=== PATIENT | male | born 1955 | race Caucasian/White ===

== ENCOUNTER 2017-01-10 12:48 | Outpatient (CLI) | payer MEDICARE ==
[~2017-01-10] VITALS: Ht 177.8 cm; Wt 99.3 kg
[~2017-01-10 12:48] MED LIST: METO-333 PO; PNT40TEC PO
[2017-01-10 12:56] VITALS: BP 155/89
[2017-01-10] MEDS ORDERED: CYCL10TA9 PO (13:02)
[2017-01-10] MEDS ORDERED: ATOR10TA66 PO (13:02)
[2017-01-10] MEDS ORDERED: RANI-515 PO (13:02)
[2017-01-10] MEDS ORDERED: HYDR-3812 PO (13:02)
[2017-01-10] MEDS ORDERED: DOCU100T7 PO (13:02)
[2017-01-10] MEDS ORDERED: ASPI-586 PO (13:02)
[2017-01-10] MEDS ORDERED: TAMS0.4C2 PO (13:02)
== END 2017-01-10 13:10 | disposition home or self-care (01) ==
LOC: PREOP 12:48
PROVIDERS: ATTEND Surgery
DX: Z01.818 Encounter for other preprocedural examination (principal); Z11.2 Encounter for screening for other bacterial diseases; K40.90 Unilateral inguinal hernia, without obstruction or gangrene, not specified as recurrent
CPT/HCPCS: 87081

== ENCOUNTER 2017-01-12 08:22 | Day surgery (SDC) | payer MEDICARE, OTHER ==
[2017-01-12] VITALS (7 sets, daily range): BP systolic 117–134; BP diastolic 74–96
[~2017-01-12] VITALS: Ht 177.8 cm; Wt 99.3 kg
[~2017-01-12 08:22] MED LIST changes: +ASPI-586 PO; +ATOR10TA66 PO; +CYCL10TA9 PO; +DOCU100T7 PO; +FAMOTIDINE 20MG/2ML IV (PEPCID) IV ONE; +HYDR-3812 PO; +RANI-515 PO; +TAMS0.4C2 PO
[2017-01-12] MEDS ORDERED: ceFAZolin 2 GM/NS 50 ML IV ONE (08:45)
[2017-01-12] MEDS: LACTATED RINGERS 1,000 ML IV PRN ×2 (08:56→11:00)
--- NOTE | 2017-01-12 08:56 | Progress Note-Pre Operative ---
Pre-Operative Progress Note H&P Reviewed The H&P was reviewed, patient examined and no changes noted. Date H&P Reviewed: January 12, 2017 Time H&P Reviewed: 08:53 Pre-Operative Diagnosis: Left inguinal hernia KACIE HOGAN DO January 12, 2017 08:56
[2017-01-12] MEDS ORDERED: CLINDAMYCIN 900 MG/50 ML IVPB 50 ML IV ONE ×2 (09:00→09:15)
[2017-01-12] MEDS ORDERED: MIDAZOLAM 2 MG/2 ML (VERSED) VIAL ONE (10:17)
[2017-01-12] MEDS ORDERED: fentaNYL INJECTION 100 MCG/2 ML AMP ONE (10:17)
[2017-01-12] MEDS ORDERED: LIDOCAINE PF 2% 10 ML (XYLOCAINE) AMP ONE (10:17)
[2017-01-12] MEDS ORDERED: LACTATED RINGERS 1,000 ML IV ONE ×2 (10:17→10:38)
[2017-01-12] MEDS ORDERED: proPOfol 200 MG/20 ML (DIPRIVAN) VIAL IV ONE (10:17)
[2017-01-12] MEDS ORDERED: ONDANSETRON 4 MG/2 ML (SDV) Z0FRAN ONE (10:17)
[2017-01-12] MEDS ORDERED: ROCURONIUM 50 MG/5 ML (ZEMURON) VIAL IV ONE (10:17)
[2017-01-12] MEDS ORDERED: SEVOFLURANE (ULTANE) 15 ML INHAL SOLN ONE (10:17)
[2017-01-12] MEDS ORDERED: LIDOCAINE/EPI 1%-1:100,000 (XYLOCAINE) 20ML ONE ×2 (10:33→10:41)
[2017-01-12] MEDS ORDERED: PHENYLEPHRINE 100 MCG/ML 10 ML (ANESTHESIA) SYR ONE (10:48)
[2017-01-12] MEDS ORDERED: MEPERIDINE (DEMEROL) INJ 50 MG/ML IVP PRN (11:00)
[2017-01-12] MEDS ORDERED: morphine INJ 10 MG/ML 1ML (SYR OR VIAL) IVP PRN (11:00)
[2017-01-12] MEDS ORDERED: ONDANSETRON 4 MG/2 ML (SDV) Z0FRAN IVP PRN (11:00)
[2017-01-12] MEDS ORDERED: NEOSTIGMINE (BLOXIVERZ ) 1 MG/1ML 10 ML VIAL ONE (11:07)
[2017-01-12] MEDS ORDERED: GLYCOPYRROLATE 0.2 MG/ML (ROBINUL) 2 ML VIAL ONE (11:07)
--- NOTE | 2017-01-12 11:15 | Progress Note-Post Operative ---
Post-Operative Progess Note Surgeon (s)/L[employer]ified [employer] Specialist (s) Surgeon KACIE HOGAN DO [employer] Specialist: Lauren Pre-Operative Diagnosis Left inguinal hernia Post-Operative Diagnosis LIH - direct inguinal mass Post-Op Procedure Note Date of Procedure: January 12, 2017 Name of Procedure Performed: 1. LIH with mesh 2. Exc subQ mass inguinal appx 3cm Description of the Procedure: as above Findings of the Procedure Direct left inguinal hernia inguinal mass Anesthesia Type GET Estimated blood loss (mL): scant Specimen(s) collected/removed inguinal mass KACIE HOGAN DO January 12, 2017 11:15
[2017-01-12] MEDS ORDERED: HYDR-3812 PO (11:16)
--- NOTE | 2017-01-12 11:18 | Discharge Inst-Surgical ---
Discharge Inst-Surgical Depart Medication/Instructions New, Converted or Re-Newed RX: RX Given to Pt/Family Patient Instructions Follow up Appt: Make appointment for 1 week. [phone] Instructions: No lifting greater than 10 pounds. No strenuous activity. May shower in 24 hours, no tub bath or soaking. Use incentive spirometer at home as directed. No Smoking Skin/Wound Care: May remove bandages in am 5/6 Symptoms to Report: Appetite Changes, Extremity Discoloration, Numbness/Tingling, Swelling Increased , Bleeding Excessive, Eyesight Changes, Pain Increased, Urine Color Change, Constipation(Persistent), Fever over 101 degree F, Pain/Pressure in chest, Urinating Difficulty, Cough Up/Vomit Blood, Heart Beat Irreg/Pounding, Pain/ Pressure in jaw, Vaginal Bleeding Increase, Cramps in feet or legs, Lightheadedness, Pain/Pressure in shoulder, Diarrhea(Persistent), Memory Changes Suddenly, Questions/Concerns, Weight gain consecutive days, Dizziness/ Fainting, Nausea/Vomiting, Shortness of Breath, Weight gain over 2 pounds If questions or concerns contact your physician Or seek help at emergency department. Activity Activity as Tolerated: Yes Activity Instructions: Avoid Pulling & Pushing, Avoid Stress to Incision Driving Instructions: No Driving/Refer to Dr. Estrada Discharge Diet: No Restrictions Diet After 24 Hours: Clear Liquid if Nauseous If Any Problems/Questions/Issu: Contact Your Physician, Go to Emergency Room Skin/Wound Care Infection Signs and Symptoms: Increased Redness, Foul Odor of Wound, Increased Drainage, Skin Itchy or Has a Rash, Increased Swelling, Temperature Above 101 F Bathing Instructions: Shower Stitches/[place]/Dermabond Dis: Dermabond Ice Pack: Ice On and Off Site KACIE HOGAN DO January 12, 2017 11:18
[2017-01-12] MEDS ORDERED: HYDROcodone/APAP 5 MG/325 MG (LORTAB) TAB ONE (12:51)
[2017-01-12] MEDS: HYDROcodone/APAP 5 MG/325 MG (LORTAB) TAB PO ONE ×2 (12:58→13:00)
[2017-01-12] MEDS ORDERED: HYDROcodone/APAP 5 MG/325 MG (LORTAB) TAB PO ONE (15:30)
--- NOTE | 2017-01-13 11:55 | OPERATIVE REPORT ---
DATE OF SERVICE: 01/12/2017 PREOPERATIVE DIAGNOSIS: Left inguinal hernia. POSTOPERATIVE DIAGNOSES: 1. Left inguinal hernia, indirect. 2. Inguinal mass. PROCEDURES: 1. Left inguinal herniorrhaphy. 2. Excision of subcutaneous inguinal mass, approximately 3 cm mass. SURGEON: Dr. Osmin Murillo. VICE CHAIRMAN: Dr. Aguilar. ANESTHESIA: General endotracheal tube. SPECIMEN: Left inguinal mass. BLOOD LOSS: Scant. FLUIDS: Per anesthesia. POSTOPERATIVE CONDITION: Stable. INDICATION FOR PROCEDURE: The patient is a 61-year-old male who came in with complaint of left inguinal pain and diagnoses of left inguinal hernia. He also had a little bit of a bulge when seen today, could see a bulge in left inguinal region, thought this was related to hernia. FINDINGS: The patient had a left inguinal hernia, indirect, and he had a mass, probably just lipoma in left inguinal region, this was sent to pathology. PROCEDURE NOTE: After informed consent was obtained, patient was brought to the operating room, placed on table on supine position. He was sterilely prepped and draped in normal fashion. Ilioinguinal nerve block as well as pubic tubercle block was performed and then infiltrated left inguinal region local, could see a mass down in the inguinal region down below, close to the scrotum, but right about the level of the penis. Made incision in left inguinal region with #15 blade carried down to skin and subcutaneous tissue and made down to subcutaneous tissue with Bovie electrocautery down to the fascia. The external oblique fascia then infiltrated with local and incised to external inguinal ring with Bovie electrocautery. Grasped the external oblique fascia with two hemostats and then dissected under it bluntly with a finger then able to get under the cord and cord structures at the pubic tubercle, placed a Sathya drain from the inferior lateral direction. Palpated around and could see this mass, tried to feel if this was femoral hernia, it was not palpated and then tried to push this skin and mass toward it, felt like there was a lump under there, elected to make a second incision, infiltrated the skin with local, made an incision with #15 blade and then made an incision through the skin into the subcutaneous tissue and then deep enough through subcutaneous tissue with Bovie electrocautery as well as blunt dissection, going down to this mass and then removing and block was about 3 cm long and about 1.5 cm in diameter. This was passed off the table and sent to pathology and this was the mass that we could palpate, almost felt like it tracked towards the inguinal canal. Once this removed, then looked superior medially on the "structures" for an indirect inguinal hernia, did not find an indirect inguinal hernia. However, he did have a floor defect, little bit of weakness and this is a direct hernia. At this point, we elected to place a ProGrip mesh 12 cm x 8 cm, trim the sides to fit into the inguinal canal, sutured one to the pubic tubercle and then circled the cord with a precut hole, thereby recreating the internal inguinal ring. The mesh then was pushed up under the external oblique fascia and laid in nicely and then copiously irrigated with normal saline, suctioned this out. Then elected to close the external oblique fascia with 3-0 Vicryl running suture thereby recreating the external inguinal ring. Then closed carpus fascia 3-0 Vicryl two interrupted sutures and then closed the skin with 4-0 undyed Monocryl in subcuticular fashion. The other incision was closed with 3-0 Vicryl deep suture and then 4-0 undyed Monocryl in subcuticular fashion. The other incision was closed with 3-0 Vicryl deep suture and then 4-0 undyed Monocryl in subcuticular fashion. Area was cleaned and dried. Dermabond placed as well as then bandaged. The patient was transferred to recovery room in stable condition. Sponge and needle counts were correct at the end of the case. Dr. Aguilar assisted in closing the skin, assisted with visualization and identification of anatomy and was necessary to this case. Job ID: [id number] DocumentID: [id number] Dictated Date: 01/12/2017 11:22:02 Master Mechanic Date: 01/13/2017 01:16:31 Dictated By: OSMIN MURILLO DO
== END 2017-01-12 16:25 | disposition home or self-care (01) ==
LOC: SDC 08:22
PROVIDERS: ATTEND Surgery
DX: K40.90 Unilateral inguinal hernia, without obstruction or gangrene, not specified as recurrent (principal); F17.210 Nicotine dependence, cigarettes, uncomplicated
CPT/HCPCS: 88302; 94664

== ENCOUNTER 2020-03-24 17:32 | Emergency (ER) | payer MEDICARE ==
[~2020-03-24] VITALS: Ht 177.8 cm; Wt 105.1 kg
[~2020-03-24 17:32] MED LIST changes: +ACHD5005 PO; -FAMOTIDINE 20MG/2ML IV (PEPCID) IV ONE; -HYDR-3812 PO; -RANI-515 PO; +RANI-609 PO
[2020-03-24 17:54] LABS: BILIRUBIN,URINE NEGATIVE (NEGATIVE); CLARITY,URINE CLEAR; COLOR,URINE YELLOW; GLUCOSE, URINE (UA) NEGATIVE (NEGATIVE); KETONES,URINE NEGATIVE (NEGATIVE); LEUKOCYTE ESTERASE ,URINE NEGATIVE (NEGATIVE); NITRITE,URINE NEGATIVE (NEGATIVE); PROTEIN,URINE NEGATIVE (NEGATIVE)
[2020-03-24 17:55] LABS: BACTERIA,URINE NEGATIVE /HPF; RBC,URINE RARE /HPF
--- NOTE | 2020-03-24 17:57 | ED General ---
General Stated Complaint: ABD PAIN Source of Information: Patient History of Present Illness Date Seen by Provider: Mar 24, 2020 Time Seen by Provider: 17:52 Initial Comments Patient is a 64-year-old male is status post hemorrhoidectomy under general a nesthesia yesterday presents with urinary retention and suprapubic pain starting this afternoon. Patient states he is able to urinate immediately following surgery and earlier today. However, symptoms began this afternoon the patient has not been able to urinate for the past few hours. Denies fever chills, nausea vomiting sweats and flank pain. No hematuria. Ports history of large prostate. Currently on Flomax. Patient also reports constipation since surgery currently on MiraLAX and stool softeners Timing/Duration: 4-6 Hours Severity: Severe Modifying Factors: improves with Other Associated Systoms: Denies Symptoms Allergies and Home Medications Allergies Coded Allergies: Penicillins (Verified Allergy, Unknown, 08/18/16) Home Medications Aspirin 81 Mg Tablet.dr, 81 MG PO DAILY, (Reported) Cyclobenzaprine HCl 10 Mg Tablet, 10 MG PO TID PRN for MUSCLE SPASMS, (Reported) Docusate Sodium 100 Mg Tablet, 100 MG PO DAILY PRN for CONSTIPATION-1ST LINE, (Reported) Patient Home Medication List Home Medication List Reviewed: Yes Review of Systems Review of Systems Constitutional: no symptoms reported EENTM: no symptoms reported Respiratory: no symptoms reported Cardiovascular: no symptoms reported Gastrointestinal: no symptoms reported Genitourinary: no symptoms reported Musculoskeletal: no symptoms reported Skin: see HPI Psychiatric/Neurological: No Symptoms Reported Immunological/Allergic: no symptoms reported Past Gnhpzef-Hgdudx-Cyjenr Hx Past Med/Social Hx: Reviewed Nursing Past Med/Soc Hx Patient Social History Type Used: Cigarettes Recent Foreign Travel: No Contact w/Someone Who Travel: No Recent Hopitalizations: No Immunizations Up To Date Tetanus Booster (TDap): Unknown Seasonal Allergies Seasonal Allergies: No Past Medical History Chronic Bronchitis Reproductive Disorders: No Benign Prostatic Hyperpl Gastroesophageal Reflux, Chronic Constipation Chronic Back Pain Depression Physical Exam Vital Signs Vital Signs - First Documented 03/24/20 17:35 Temp 36.8 Pulse 73 Resp 18 B/P (MAP) 144/82 (102) Pulse Ox 98 O2 Delivery Room Air Capillary Refill : Height, Weight, BMI Height: 5'10.00" Weight: 219lbs. 0.0oz. 99.057605oq; 31.4 BMI Method:Stated General Appearance: No Apparent Distress Eyes: Bilateral Eye Normal Inspection, Bilateral Eye PERRL, Bilateral Eye EOMI HEENT: PERRL/EOMI Neck: Normal Inspection, Non Tender Respiratory: Lungs Clear Cardiovascular: Regular Rate, Rhythm Gastrointestinal: Soft, Tenderness (suprapubic) Back: No CVA Tenderness Neurologic/Psychiatric: Alert, Oriented x3, No Motor/Sensory Deficits Focused Exam Sepsis Stage: Ruled Out Progress/Results/Core Measures Suspected Sepsis SIRS Temperature: Pulse: Respiratory Rate: Blood Pressure / Mean: Results/Orders Lab Results Laboratory Tests Test 03/24/20 17:40 Range/Units Urine Color YELLOW Urine Clarity CLEAR Urine pH 6.0 5-9 Urine Specific [facility] <=1.005 1.016-1.022 Urine Protein NEGATIVE NEGATIVE Urine Glucose (UA) NEGATIVE NEGATIVE Urine Ketones NEGATIVE NEGATIVE Urine Nitrite NEGATIVE NEGATIVE Urine Bilirubin NEGATIVE NEGATIVE Urine Urobilinogen 0.2 < = 1.0 MG/DL Urine Leukocyte Esterase NEGATIVE NEGATIVE Urine RBC (Auto) NEGATIVE NEGATIVE Urine RBC RARE /HPF Urine WBC NONE /HPF Urine Squamous Epithelial Cells NONE /HPF Urine Crystals NONE /LPF Urine Bacteria NEGATIVE /HPF Urine Casts NONE /LPF Urine Mucus NEGATIVE /LPF Urine Culture Indicated NO My Orders Orders - EUGENIO MAE DO Catheter(Urinary) Insert & Ass (03/24/20 17:32) Ua Culture If Indicated (03/24/20 17:32) Vital Signs/I&O Capillary Refill : Departure Communication (Admissions) Fully catheter placed with urine output greater than 600 mL's of urine accompanied with relief of abdominal pain. We'll check UA, and leads catheter in place with anticipated discharge home with instructions to follow up with PCP in 2 days for catheter removal. Impression Primary Impression: Acute urinary retention Disposition: HOME, SELF-CARE Condition: Stable Departure-Patient Inst. Decision time for Depature: 17:56 Referrals: SELFSO MD (PCP) Primary Care Physician Patient Instructions: Urinary Retention (DC), Palmer Catheter, Male Add. Discharge Instructions: Please continue home medications and follow up with PCP in 2 days for Palmer catheter removal EUGENIO MAE DO Mar 24, 2020 17:57
[2020-03-24] MEDS ORDERED: ATOR40TA70 (17:59)
[2020-03-24] MEDS ORDERED: TAMSULOSIN (17:59)
[2020-03-24] MEDS ORDERED: LISI-556 (17:59)
[2020-03-24] MEDS ORDERED: ROPI0.5T4 (17:59)
[2020-03-24] MEDS ORDERED: FAMO20TA5 (17:59)
[2020-03-24] MEDS ORDERED: FLUO40CA (17:59)
[2020-03-24] MEDS ORDERED: ERGO50006 (17:59)
[2020-03-24] MEDS ORDERED: METF-397 (17:59)
[2020-03-24] MEDS ORDERED: HYDR-83 (17:59)
[2020-03-24 18:25] VITALS: BP 145/75
== END 2020-03-24 18:25 | disposition home or self-care (01) ==
LOC: EDUNIT# 17:32 → ER FS 17:33
DX: R33.9 Retention of urine, unspecified (principal); K59.09 Other constipation; Z88.0 Allergy status to penicillin; Z98.890 Other specified postprocedural states; Z79.82 Long term (current) use of aspirin
CPT/HCPCS: 51702; 81000

== ENCOUNTER → 2020-10-08 | Outpatient (CLI) | payer MEDICARE ==
[~2020-10-08] MED LIST changes: +ACHD5005; +ATOR40TA70; +ERGO50006; +FAMO20TA5; +FLUO40CA; +LISI-556; +METF-397; +ROPI0.5T4; +TAMSULOSIN
--- NOTE | 2020-10-08 11:20 | Diagnostic Imaging Report ---
Indication: Abdominal pain KUB 11:09 AM Lung bases are clear. Bowel gas pattern is normal. There are no pathologic masses or calcifications. IMPRESSION: No acute abnormalities in the abdomen Dictated by: Dictated on workstation # [id number]
== END ==
LOC: RAD FS 11:06
PROVIDERS: ATTEND Family Medicine
DX: R10.84 Generalized abdominal pain (principal)
CPT/HCPCS: 74018

== ENCOUNTER 2021-02-19 17:25 | Emergency (ER) | payer MEDICARE ==
[~2021-02-19] VITALS: Ht 180.3 cm; Wt 105.3 kg
[~2021-02-19 17:25] MED LIST changes: -LISI-556; +LISI-729
[2021-02-19] MEDS ORDERED: LIDOCAINE 1% INJ 20 ML 20 ML VIAL INJ STA (17:38)
[2021-02-19] MEDS ORDERED: CLINDAMYCIN 150 MG (CLEOCIN) CAP PO STA (18:23)
--- NOTE | 2021-02-19 18:25 | ED Upper Extremity ---
General Chief Complaint: Foreign Body Stated Complaint: FOREIGN OBJ STUCK IN RIGHT MIDDLE FINGER Nursing Triage Note: see triage note Nursing Sepsis Screen: No Definite Risk Source: patient History of Present Illness Date Seen by Provider: Feb 19, 2021 Time Seen by Provider: 17:27 Initial Comments 65-year-old male presenting with a fishhook stuck in his right middle finger. He states he was doing yard work and had reached into his vehicle to get something when he accidentally caught his finger on the fishhook. He thinks his last tetanus was more than 5 years ago. He did try to remove the fishhook on his own but it was too painful try to pull back out. Is a single barbed single hook fishhook. He states that it is dirty and he had just been fishing previously. He denies any numbness or tingling in the fingertip. He has normal range of motion. He reports that happening about 1 hour prior to arrival Onset: just prior to arrival (By about 1 hour) Pain/Injury Location: right 3rd finger Method of Injury: other (Accidentally caught middle finger on fishhook when reaching in his vehicle) Allergies and Home Medications Allergies Coded Allergies: Penicillins (Verified Allergy, Unknown, 08/18/16) Home Medications Aspirin 81 Mg Tablet.dr, 81 MG PO DAILY, (Reported) Clindamycin HCl 300 Mg Capsule, 300 MG PO QID Prescribed by: DIONISIO DEJESUS on 02/19/211856 Cyclobenzaprine HCl 10 Mg Tablet, 10 MG PO TID PRN for MUSCLE SPASMS, (Reported) Docusate Sodium 100 Mg Tablet, 100 MG PO DAILY PRN for CONSTIPATION-1ST LINE, (Reported) Levofloxacin 750 Mg Tablet, 750 MG PO DAILY Prescribed by: DIONISIO DEJESUS on 02/19/211856 Patient Home Medication List Home Medication List Reviewed: Yes Review of Systems Constitutional: No chills, No fever EENTM: no symptoms reported Respiratory: no symptoms reported Cardiovascular: no symptoms reported Gastrointestinal: no symptoms reported Genitourinary: no symptoms reported Musculoskeletal: see HPI Skin: see HPI Psychiatric/Neurological: Denies Numbness, Denies Paresthesia Past Sdsmool-Anyjlp-Ntozwv Hx Past Med/Social Hx: Reviewed Nursing Past Med/Soc Hx Patient Social History Alcohol Use: Denies Use Smoking Status: Current Everyday Smoker Type Used: Cigarettes 2nd Hand Smoke Exposure: No Recent Infectious Disease Expo: No Recent Hopitalizations: Yes (03/23/20 Hemorroidectomy) Immunizations Up To Date Tetanus Booster (TDap): Unknown Seasonal Allergies Seasonal Allergies: No Past Medical History Surgeries: Yes (L Ing Herniorraphy, Hemorroidectomy) Respiratory: Yes Chronic Bronchitis Cardiac: No Neurological: No Reproductive Disorders: No Genitourinary: Yes Benign Prostatic Hyperpl Gastrointestinal: Yes Gastroesophageal Reflux, Chronic Constipation Musculoskeletal: Yes (CHRONIC NECK AND BACK PAIN ) Chronic Back Pain Endocrine: No HEENT: No Cancer: No Psychosocial: Yes Depression Integumentary: No Blood Disorders: No Physical Exam Vital Signs Vital Signs - First Documented 02/19/21 17:28 Temp 35.8 Pulse 87 Resp 16 B/P (MAP) 123/68 (86) Pulse Ox 94 O2 Delivery Room Air Capillary Refill : Less Than 3 Seconds Height, Weight, BMI Height: 5'10.00" Weight: 219lbs. 0.0oz. 99.933917mx; 32.00 BMI Method:Stated General Appearance: WD/WN, no apparent distress Cardiovascular: normal peripheral pulses Hand: Right, laceration ([place] foreign body in distal phalanx of the middle finger on the right hand) Neurologic/Tendon: normal sensation, normal motor functions, normal tendon functions Neurologic/Psychiatric: merchandise complaint adjuster II-XII nml as tested, alert, normal mood/affect, oriented x 3 Skin: normal color, warm/dry Procedures/Interventions I&D : Site: Right middle finger distal phalanx Blade Size: 10 I & D Procedure: betadine prep Progress After obtaining verbal consent from the patient the middle finger of the right hand was anesthetized using a digital block. He was given 1% plain lidocaine for a total of 5 mL infiltrated in the base of his right middle finger. Then a few minutes were allowed to pass while sitting up supplies. He had no complaints of pain when cleaning the wound. Using Betadine prep and sterile water the wound was scrubbed with gauze and 4 x 4's. Then the fishhook was secured with Kellys clamp and a small demond was made over the kezia of the fi shhook. Then using the blunt needle the kezia was covered and the fishhook was removed without any complication or difficulty. Patient tolerated procedure well without any complication. Counseled on follow-up and return precautions as well as management of the wound Progress/Results/Core Measures Results/Orders My Orders Orders - DIONISIO DEJESUS MD Lidocaine 1% Inj 20 Ml (Xylocaine 1% Inj (02/19/21 17:38) Suture Set At Bedside (02/19/21 17:38) Dipht,Pertuss(Acell),Tet Adult (Boostrix (02/19/21 18:30) Clindamycin Capsule (Cleocin Capsule) (02/19/21 18:23) Levofloxacin Tablet (Levaquin Tablet) (02/19/21 18:23) Wound Dressing-Ed (02/19/21 18:58) Medications Given in ED Current Medications Medications Dose Ordered Sig/German Route Start Time Stop Time Status Last Admin Dose Admin Diphtheria/ Tetanus/Acell Pertussis 0.5 ml ONCE ONCE IM 02/19/21 18:30 02/19/21 18:31 DC 02/19/21 18:39 0.5 ML Vital Signs/I&O 02/19/21 02/19/21 17:28 19:05 Temp 35.8 35.8 Pulse 87 87 Resp 16 16 B/P (MAP) 123/68 (86) 123/68 (86) Pulse Ox 94 94 O2 Delivery Room Air Blood Pressure Mean: 86 Progress Progress Note : Progress Note After obtaining verbal consent from the patient the finger was anesthetized with a digital block prior to removing the fishhook. He tolerated the procedure well without any immediate complication. Updated his tetanus. Started on Levaquin and clindamycin since he has a penicillin allergy. Continue a few days worth of antibiotics. Counseled on follow-up and return precautions. Departure Impression Primary Impression: Fish hook injury of right middle finger Qualified Codes: S69.91XA - Unspecified injury of right wrist, hand and finger(s), initial encounter Disposition: 01 HOME, SELF-CARE Condition: Stable Departure-Patient Inst. Decision time for Depature: 18:57 Referrals: SO MEJÍA MD (PCP/Family) Primary Care Physician Patient Instructions: Common Finger Injuries ED, Removal of Foreign Body in Skin Add. Discharge Instructions: Keep wound clean and dry for first 24 hours. Elevate hand and finger above your heart level to help with pain, swelling and bleeding. Tomorrow evening you could remove the dressing and wash with soap and water, but do not soak the finger. Apply antibiotic ointment and a bandaid. Ibuprofen or Acetaminophen if needed for pain. Take the full course of antibiotics to help try and prevent infection. Follow up with clinic or return if having signs of infection such as redness spreading up your hand, pus draining from wound, or fever over 101 F All discharge instructions reviewed with patient and/or family. Voiced understanding. Scripts Clindamycin HCl (Clindamycin HCl) 300 Mg Capsule 300 MG PO QID for fish hook injury for 5 Days, #20 CAP 0 Refills Prov: DIONISIO DEJESUS MD 02/19/21 Levofloxacin (Levofloxacin) 750 Mg Tablet 750 MG PO DAILY for fish hook injury for 5 Days, #5 TAB 0 Refills Prov: DIONISIO DEJESUS MD 02/19/21 DIONISIO DEJESUS MD Feb 19, 2021 18:25
[2021-02-19] MEDS ORDERED: TETANUS,DIPTH,PERTUSS P/F (BOOSTRIX) 0.5 ML VIAL IM ONE (18:30)
[2021-02-19] MEDS ORDERED: CLIN300C12 PO (18:57)
[2021-02-19] MEDS ORDERED: LEVO750T39 PO (18:57)
[2021-02-19 19:05] VITALS: BP 123/68
== END 2021-02-19 19:05 ==
LOC: EDUNIT# 17:25 → ER FS 17:27
DX: S61.222A Laceration with foreign body of right middle finger without damage to nail, initial encounter (principal); K59.00 Constipation, unspecified; G89.29 Other chronic pain; M54.2 Cervicalgia; F17.210 Nicotine dependence, cigarettes, uncomplicated; Z79.899 Other long term (current) drug therapy; Z88.0 Allergy status to penicillin; Z23 Encounter for immunization; W45.8XXA Other foreign body or object entering through skin, initial encounter
CPT/HCPCS: 90715; 99282